=== PATIENT | male | born 1980 | race African-American/Black ===

== ENCOUNTER 2018-11-15 07:46 | Emergency (ER) | payer OTHER ==
[~2018-11-15] VITALS: Ht 167.6 cm; Wt 68.0 kg
[2018-11-15 07:47] VITALS: BP 116/83
[2018-11-15] MEDS ORDERED: PENICILLIN V P500 MG PO (08:02)
== END 2018-11-15 08:10 | disposition home or self-care (01) ==
LOC: ER 07:46
DX: K04.7 Periapical abscess without sinus (principal); F17.210 Nicotine dependence, cigarettes, uncomplicated